=== PATIENT | male | born 1965 | race Caucasian/White ===

== ENCOUNTER 2017-01-14 22:51 | Emergency (ER) | payer MEDICAID ==
[~2017-01-14] VITALS: Ht 185.4 cm; Wt 104.1 kg
[2017-01-14 23:40] VITALS: BP 121/82
== END 2017-01-15 00:48 | disposition home or self-care (01) ==
LOC: ED 23:59
DX: S39.012A Strain of muscle, fascia and tendon of lower back, initial encounter (principal); X58.XXXA Exposure to other specified factors, initial encounter; Y93.89 Activity, other specified; Y99.8 Other external cause status; Y92.89 Other specified places as the place of occurrence of the external cause
CPT/HCPCS: 72072; 72110; 99284

== ENCOUNTER 2017-05-02 15:18 | Emergency (ER) | payer MEDICAID ==
[~2017-05-02] VITALS: Ht 185.4 cm; Wt 100.4 kg
[2017-05-02 15:20] VITALS: BP 136/90
[2017-05-02] MEDS ORDERED: SERT100T5 PO (15:50)
== END 2017-05-02 16:24 | disposition home or self-care (01) ==
LOC: ED 16:10
DX: S40.011A Contusion of right shoulder, initial encounter (principal); F10.120 Alcohol abuse with intoxication, uncomplicated; W19.XXXA Unspecified fall, initial encounter; Y93.89 Activity, other specified; Y99.8 Other external cause status; Y92.89 Other specified places as the place of occurrence of the external cause
CPT/HCPCS: 99284